=== PATIENT | female | born 1970 | race Caucasian/White ===

== ENCOUNTER 2022-08-29 01:40 | Emergency (ER) | payer OTHER ==
[2022-08-29 02:13] VITALS: BMI 30.8
[2022-08-29] MEDS ORDERED: ACETAMINOPHEN 1000 MG/100 ML BAG IVPB ONE (02:40)
[2022-08-29] MEDS ORDERED: ONDANSETRON 4 MG/2 ML VIAL IVPB ONE (02:41)
[2022-08-29] MEDS ORDERED: MAG HYDROX/AL HYDROX/SIMETH 30 ML UNIT-DOSE CUP PO ONE (02:41)
[2022-08-29] MEDS ORDERED: LIDOCAINE 5% TOPICAL PATCH TP ONE (02:42)
[2022-08-29] MEDS ORDERED: ONDANSETRON 4 MG/2 ML VIAL ONE (02:50)
[2022-08-29] MEDS ORDERED: LIDOCAINE 5% TOPICAL PATCH ONE (02:50)
[2022-08-29] MEDS ORDERED: MAG HYDROX/AL HYDROX/SIMETH 30 ML UNIT-DOSE CUP ONE (02:50)
[2022-08-29] MEDS ORDERED: ACETAMINOPHEN INJECTION 100 ML IVPB ONE (02:50)
[2022-08-29] MEDS ORDERED: FAMOTIDINE 20 MG/50 ML IVPB 20 MG/50 ML MG IVPB ONE ×2 (02:51→03:10)
[2022-08-29 03:16] LABS: VENOUS BASE EXCESS 3.6 mmol/L (-2-2); VENOUS O2 SATURATION 47.1 % (70-80); VENOUS PCO2 57.4 mmHg (38-52); VENOUS PH 7.349 (7.310-7.410)
[2022-08-29 03:17] LABS: BASO % 0.4 % (0-2.0); EOS % 1.2 % (0-4.5); HEMATOCRIT 43.1 % (32.4-45.2); HEMOGLOBIN 14.2 GM/dL (10.7-15.3); LYMPH % 22.2 % (8-40); MCH 30.6 pg (25.7-33.7); MEAN CELL VOLUME 92.8 fl (80-96); MEAN PLT VOLUME 8.9 fl (7.5-11.1); NEUT % 66.2 % (42.8-82.8); PLATELET COUNT 115 10^3/uL (134-434); RBC 4.64 M/mm3 (3.60-5.2); RDW 13.1 % (11.6-15.6); WHITE BLOOD COUNT 7.6 K/mm3 (4.0-10.0)
[2022-08-29 03:25] LABS: INR 1.12 (0.83-1.09); PROTHROMBIN TIME (PATIENT) 12.9 SEC (9.7-13.0)
[2022-08-29 03:28] LABS: ACTIVATED PTT 27.8 SECONDS (25.2-36.5)
[2022-08-29] MEDS ORDERED: morphine CARPU-JECT 4 MG/1 ML DISP.SYRIN IVPUSH ONE (03:56)
[2022-08-29 03:59] LABS: CALCIUM 8.8 mg/dL (8.5-10.1)
[2022-08-29 04:00] LABS: ALBUMIN 2.9 g/dl (3.4-5.0); BLOOD UREA NITROGEN 13.4 mg/dL (7-18); MAGNESIUM 2.1 mg/dL (1.8-2.4)
[2022-08-29 04:03] LABS: CREATININE 0.7 mg/dL (0.55-1.3)
[2022-08-29 04:04] LABS: BILIRUBIN,TOTAL 0.3 mg/dL (0.2-1); TOT PROT 6.6 g/dl (6.4-8.2)
[2022-08-29] MEDS ORDERED: morphine SULFATE 4 MG/ML VIAL IVPUSH ONE (05:18)
[2022-08-29] MEDS ORDERED: RIVAROXABAN 20 MG TABLET PO ONE (06:38)
[2022-08-29 06:47] VITALS: BP 103/68; PULSE 68; RESP 18; TEMP 97.7
[2022-08-29] MEDS ORDERED: LIDOCAINE PATCH REMOVAL MC ONE (15:00)
== END 2022-08-29 06:54 | disposition home or self-care (01) ==
LOC: JER 01:40
PROC: 3E0333Z Introduction of Anti-inflammatory into Peripheral Vein, Percutaneous Approach (ICD-10-PCS; principal; 2022-08-29)
PROC: 3E033GC Introduction of Other Therapeutic Substance into Peripheral Vein, Percutaneous Approach (ICD-10-PCS; 2022-08-29)
PROC: 3E033NZ Introduction of Analgesics, Hypnotics, Sedatives into Peripheral Vein, Percutaneous Approach (ICD-10-PCS; 2022-08-29)
PROC: 3E033NZ Introduction of Analgesics, Hypnotics, Sedatives into Peripheral Vein, Percutaneous Approach (ICD-10-PCS; 2022-08-29)
PROC: 3E033GC Introduction of Other Therapeutic Substance into Peripheral Vein, Percutaneous Approach (ICD-10-PCS; 2022-08-29)
DX: R10.13 Epigastric pain (principal); M54.6 Pain in thoracic spine
CPT/HCPCS: 0241U-QW; 36415; 71045-TC-FY; 71275-TC; 74177-TC; 80053; 82803; 83690; 83735; 84484; 84703; 85025; 85610; 85730; 86850; 86900; 86901; 93005; 93010; 99285-25